=== PATIENT | male | born 1960 | race Caucasian/White ===

== ENCOUNTER 2017-11-09 06:13 | Emergency (ER) | payer MEDICARE, OTHER, MEDICAID ==
[~2017-11-09] VITALS: Ht 188 cm; Wt 78.0 kg
[~2017-11-09 06:13] MED LIST: ALBU8.5H4 PO; ATOR40TA PO; FLUT16SP11 NAS; HYDR-565 PO; IBUP-1984 PO; LANTUS SQ; METF500T PO; NORCO10T PO
[2017-11-09 06:17] VITALS: BP 121/71
[2017-11-09] MEDS ORDERED: ACET-3068 PO (06:57)
== END 2017-11-09 07:06 | disposition home or self-care (01) ==
LOC: ER 06:13
DX: K08.89 Other specified disorders of teeth and supporting structures (principal); R51 Headache; E78.00 Pure hypercholesterolemia, unspecified; E11.9 Type 2 diabetes mellitus without complications; G89.29 Other chronic pain; F17.200 Nicotine dependence, unspecified, uncomplicated; Z98.890 Other specified postprocedural states; Z79.899 Other long term (current) drug therapy; Z79.4 Long term (current) use of insulin; Z79.1 Long term (current) use of non-steroidal anti-inflammatories (NSAID)
CPT/HCPCS: 99282; 99283

== ENCOUNTER 2018-08-14 04:21 | Inpatient (IN) | payer MEDICARE, MEDICAID ==
[~2018-08-14] VITALS: Ht 185.4 cm; Wt 80.9 kg
[~2018-08-14 04:21] MED LIST changes: +HYDR-4353 PO; -HYDR-565 PO
[2018-08-14] MEDS ORDERED: normal saline 1000ML IV soln IV ONE (04:30)
[2018-08-14] MEDS ORDERED: insulin regular, human 10 units/0.1 ml syringe SQ ONE (04:30)
[2018-08-14] MEDS ORDERED: insulin regular, human 10 units/0.1 ml syringe IV ONE (04:30)
[2018-08-14] MEDS ORDERED: ondansetron/PF 4mg/2ml inj IV ONE ×2 (04:55→08:10)
[2018-08-14 05:42] LABS: BASOPHILS # (AUTO) 0.1 X10'3 (0-0.2); BASOPHILS % (AUTO) 0.4 % (0-1); EOSINOPHILS % (AUTO) 0.1 % (0-6); HEMOGLOBIN 15.3 g/dl (14.0-17.9); LYMPHOCYTES # (AUTO) 1.2 X10'3 (1.1-4.8); LYMPHOCYTES % (AUTO) 7.7 % (21-51); MEAN CORPUSCULAR HEMOGLOBIN 30.4 PG (27.0-31.0); MEAN CORPUSCULAR HGB CONC 31.9 g/dL (33.0-36.5); MEAN CORPUSCULAR VOLUME 95.3 FL (78-98); MEAN PLATELET VOLUME 9.7 FL (7.4-10.4); MONOCYTES # (AUTO) 0.2 X10'3 (0-0.9); NEUTROPHILS # (AUTO) 14.6 X10'3 (1.8-7.7); NEUTROPHILS % (AUTO) 90.8 % (42-75); PLATELET COUNT 357 X10'3 (140-440); RED BLOOD COUNT 5.03 X10'6 (4.70-6.10); RED CELL DISTRIBUTION WIDTH 13.4 % (11.5-14.5); WHITE BLOOD COUNT 16.1 X10'3 (4.5-11.0)
[2018-08-14 05:55] LABS: PARTIAL THROMBOPLASTIN TIME 25 SECONDS (22-32)
[2018-08-14 06:03] LABS: ALANINE AMINOTRANSFERASE 45 U/L (12-78); ALBUMIN 3.7 G/DL (3.4-5.0); ALBUMIN/GLOBULIN RATIO 1.1 (1.1-1.5); ALKALINE PHOSPHATASE 183 IU/L (46-116); ANION GAP 41 (8-16); ASPARTATE AMINO TRANSFERASE 31 U/L (10-37); BILIRUBIN,TOTAL 0.5 MG/DL (0.1-1.0); BLOOD UREA NITROGEN 41 MG/DL (7-18); BUN/CREATININE RATIO 18.5 (5.4-32.0); CALCIUM 9.8 MG/DL (8.5-10.1); CHLORIDE 81 MMOL/L (99-107); CREATININE 2.22 MG/DL (0.60-1.10); POTASSIUM 4.8 MMOL/L (3.5-5.1); SODIUM 131 MMOL/L (135-145); TOTAL PROTEIN 7.1 G/DL (6.4-8.2); TROPONIN I < 0.04 NG/ML (0.0-0.05); eGFR 30 ML/MIN
[2018-08-14 06:17] LABS: GLUCOSE 823 MG/DL (70-104); TOTAL CARBON DIOXIDE 9.2 MMOL/L (24-32)
[2018-08-14] MEDS ORDERED: potassium Cl 40MEQ/NS 500ml 500 ML IV PRN ×6 (06:30→08:05)
[2018-08-14] MEDS ORDERED: normal saline 1000ML IV soln IVB ONE (06:30)
[2018-08-14] MEDS ORDERED: sodium phosphate inj. 15 MMOL in dextrose 5%-water 150 ML IV PRN ×2 (06:30→08:05)
[2018-08-14] MEDS ORDERED: potassium Cl 20 mEq SR tablet PO PRN ×6 (06:30→08:05)
[2018-08-14] MEDS ORDERED: sodium phosphate inj. 30 MMOL in dextrose 5%-water 250 ML IV PRN ×2 (06:30→08:05)
--- NOTE | 2018-08-14 06:52 | NUR ---
RT AT BEDSIDE DRAWING ABG PER ORDERS NOW
[2018-08-14] MEDS: insulin regular, DKA only 100 UNIT in normal saline 100ml IV soln 99 ML IV SCH ×4 (07:13→09:04)
[2018-08-14 07:20] LABS: ALBUMIN 3.4 G/DL (3.4-5.0); ANION GAP 37 (8-16); BLOOD UREA NITROGEN 39 MG/DL (7-18); BUN/CREATININE RATIO 19.4 (5.4-32.0); CALCIUM 8.8 MG/DL (8.5-10.1); CHLORIDE 88 MMOL/L (99-107); CREATININE 2.01 MG/DL (0.60-1.10); PHOSPHORUS 7.4 MG/DL (2.3-4.5); POTASSIUM 4.1 MMOL/L (3.5-5.1); SODIUM 134 MMOL/L (135-145); eGFR 34 ML/MIN
[2018-08-14 07:29] LABS: TOTAL CARBON DIOXIDE 9.2 MMOL/L (24-32)
[2018-08-14 07:31] LABS: ABG BASE EXCESS -16.7 mmol/L (-2.0-3.0); ABG HCO3 8.3 mmol/L (22.0-26.0); ABG OXYGEN SATURATION 97.2 % (95-98); ABG PCO2 (T) 19.8 mmHg (35.0-48.0); ABG PH (T) 7.242 (7.350-7.450); ABG PO2 (T) 106.4 mmHg (83-108); ALLEN'S TEST Positive; FCOHb 0.2 % (0.5-1.5); FMetHb 0.2 % (0.3-1.12); FO2Hb 96.8 % (94-100); TOTAL HEMOGLOBIN 14.4 G/dl (14.0-18.0)
[2018-08-14 07:34] LABS: GLUCOSE 634 MG/DL (70-104)
[2018-08-14 07:40] LABS: CLARITY,URINE CLEAR (Clear); COLOR,URINE YELLOW (Yellow); GLUCOSE, URINE >=1000 mg/dl (Neg); KETONES,URINE >=80 mg/dl (Neg); LEUKOCYTE ESTERASE ,URINE NEGATIVE (Neg); NITRITES, URINE NEGATIVE (Neg); OCCULT BLOOD,URINE TRACE-LYSED (Neg); PH,URINE 5.5 (4.8-8.0); PROTEIN,URINE NEGATIVE (Neg); UROBILINOGEN,URINE 0.2 E.U/dL (0.2-1.0)
[2018-08-14 07:41] LABS: UA COLLECTION TYPE CLN CATCH MIDSTREAM
--- NOTE | 2018-08-14 07:46 | NUR ---
CALLED HATTIE ON [facility] [phone] LEFT MESSAGE REQUESTING A LIST OF PT MEDICATIONS BE FAXED TO HOSPITAL TO UPDATE PT MED REC
[2018-08-14 07:48] LABS: BACTERIA,URINE NONE SEEN /HPF (Neg); MUCUS STRANDS NONE SEEN /LPF (Neg); RBC,URINE NONE SEEN /HPF (0-2); SQUAMOUS EPITHELIAL CELL,UR NONE SEEN /LPF (FEW); WBC,URINE NONE SEEN /HPF (0-4)
[2018-08-14] MEDS ORDERED: magnesium 2GM in 50ml NS 50 ML IV PRN (07:55)
[2018-08-14] MEDS ORDERED: magnesium Cl slow-release 64mg tablet PO PRN (07:55)
[2018-08-14] MEDS ORDERED: ondansetron/PF 4mg/2ml inj IV PRN (07:55)
[2018-08-14] MEDS ORDERED: magnesium 4gm in 100ml NS 100 ML IV PRN (07:55)
[2018-08-14] MEDS: K and/or MAG REPLACEMENT MC SCH (08:00)
[2018-08-14] MEDS ORDERED: K and/or MAG REPLACEMENT MC SCH (08:00)
[2018-08-14] MEDS ORDERED: sodium bicarbonate (8.4%) inj. 100 MEQ in dextrose 5% water 500ml 500 ML IV PRN (08:02)
[2018-08-14] MEDS ORDERED: sodium bicarbonate (8.4%) inj. 50 MEQ in dextrose 5% water 500ml 250 ML IV PRN (08:02)
[2018-08-14] MEDS: normal saline 1000ml 1,000 ML IV SCH ×6 (08:02→20:02)
[2018-08-14] MEDS ORDERED: insulin regular, DKA only 100 UNIT in normal saline 100ml IV soln 99 ML IV SCH ×2 (08:02)
[2018-08-14] MEDS ORDERED: Neutra Phos packet PO PRN (08:05)
[2018-08-14] MEDS ORDERED: insulin regular, human vial - multi-dose IV PRN (08:05)
--- NOTE | 2018-08-14 08:22 | NUR ---
Patient received total of 4 L bolus. MD cancelled next 2 L and requested to start NS @ 250.
[2018-08-14 09:20] LABS: ALBUMIN 3.1 G/DL (3.4-5.0); ANION GAP 27 (8-16); BLOOD UREA NITROGEN 39 MG/DL (7-18); BUN/CREATININE RATIO 20.9 (5.4-32.0); CALCIUM 7.5 MG/DL (8.5-10.1); CHLORIDE 97 MMOL/L (99-107); CREATININE 1.87 MG/DL (0.60-1.10); POTASSIUM 4.5 MMOL/L (3.5-5.1); SODIUM 137 MMOL/L (135-145); eGFR 37 ML/MIN
[2018-08-14 09:22] LABS: TOTAL CARBON DIOXIDE 13.5 MMOL/L (24-32)
[2018-08-14 09:25] LABS: GLUCOSE 504 MG/DL (70-104)
[2018-08-14] MEDS ORDERED: IBUP-1985 PO (09:43)
[2018-08-14] MEDS ORDERED: INSU100C4 SQ (09:43)
[2018-08-14] MEDS ORDERED: LISI10TA4 PO (09:45)
[2018-08-14] MEDS ORDERED: SITA100T15 PO (09:45)
[2018-08-14] MEDS ORDERED: ATOR40TA PO (09:45)
[2018-08-14] MEDS ORDERED: ibuprofen 200mg tablet PO PRN (10:00)
[2018-08-14 10:37] VITALS: BP 122/57
--- NOTE | 2018-08-14 10:41 | NUR ---
PAGER ID: [phone] MESSAGE: [phone] [id number] Jeffrey Naranjo can he get anything for pain. Patient has 8/10 back pain. RONDA Molina Ext [phone]
[2018-08-14 12:08] LABS: ALBUMIN 3.6 G/DL (3.4-5.0); ANION GAP 21 (8-16); BLOOD UREA NITROGEN 34 MG/DL (7-18); BUN/CREATININE RATIO 22.1 (5.4-32.0); CALCIUM 8.8 MG/DL (8.5-10.1); CHLORIDE 99 MMOL/L (99-107); CREATININE 1.54 MG/DL (0.60-1.10); GLUCOSE 357 MG/DL (70-104); PHOSPHORUS 3.1 MG/DL (2.3-4.5); POTASSIUM 4.1 MMOL/L (3.5-5.1); SODIUM 140 MMOL/L (135-145); TOTAL CARBON DIOXIDE 20.2 MMOL/L (24-32); eGFR 46 ML/MIN
--- NOTE | 2018-08-14 12:29 | NUR ---
DM Consult: Pt admit w/ DKA hx T2DM insulin dependent and T1DM in EMR? Per MD note pt has gone the past month w/o DM meds. GLU 800's on admit. Last A1C 2013; SAGRARIO d/w RN for new A1C this admit. Pt will need DM ed once more clinically stable prior to d/c. Currently NPO on insulin drip w/ electroytes PRN per DKA protocol. Will continue to monitor. Rec: 1. advance to carb controlled diet per 2. monitor for ONS needs once PO 3. DM ed once clinically stable prior to d/c 4. wt per rx Addendum: 08/14/18 at [address] Amended: Links added.
[2018-08-14 12:37] LABS: TOTAL CELLS COUNTED 100
[2018-08-14 12:38] LABS: PLATELET ESTIMATE NORMAL
[2018-08-14] MEDS: dextrose 5%-1/2 normal saline 1,000 ML IV SCH ×2 (13:09→13:10)
[2018-08-14] MEDS: potassium CL 20mEq in D5-1/2NS 1,000 ML IV PRN ×2 (13:39→20:58)
[2018-08-14] MEDS ORDERED: non-formulary drug (Ibuprofen 1 TAB) PO PRN (14:20)
[2018-08-14 15:00] VITALS: BP 137/77
[2018-08-14] MEDS: lisinopril 10 MG tablet PO SCH (15:23)
[2018-08-14 17:13] LABS: ALBUMIN 2.8 G/DL (3.4-5.0); ANION GAP 13 (8-16); BLOOD UREA NITROGEN 31 MG/DL (7-18); BUN/CREATININE RATIO 23.3 (5.4-32.0); CALCIUM 7.7 MG/DL (8.5-10.1); CHLORIDE 103 MMOL/L (99-107); CREATININE 1.33 MG/DL (0.60-1.10); GLUCOSE 269 MG/DL (70-104); PHOSPHORUS 2.5 MG/DL (2.3-4.5); POTASSIUM 4.1 MMOL/L (3.5-5.1); SODIUM 138 MMOL/L (135-145); TOTAL CARBON DIOXIDE 22.1 MMOL/L (24-32); eGFR 55 ML/MIN
--- NOTE | 2018-08-14 17:26 | NUR ---
PAGER ID: [phone] MESSAGE: [id number] Jeffrey Naranjo his anion gap is now 13 and CO2 is 22.1. RONDA Molina Ext [id number]
--- NOTE | 2018-08-14 17:54 | NUR ---
PAGER ID: [phone] MESSAGE: [id number] Jeffrey Naranjo Can we try giving him food. CO2 and Anion gap has met parameters. RONDA Molina Ext [phone] Addendum: 08/14/18 at 1802 by Jesse Chu RN Start on clear liquids per Mendez BAUER.
--- NOTE | 2018-08-14 18:21 | NUR ---
Problems reprioritized. Patient report given, questions answered & plan of care reviewed with RONDA Perez.
[2018-08-14 19:00] VITALS: BP 92/55
[2018-08-14] MEDS: atorvastatin 20mg tablet PO SCH (20:07)
[2018-08-14] MEDS: heparin, porcine 5000 units/ml vial SQ SCH (20:08)
[2018-08-14] MEDS ORDERED: glucagon, human recombinant 1mg kit SUBCUT PRN (20:20)
[2018-08-14] MEDS ORDERED: MESSAGE TO PHARMACY PO ONE (20:20)
[2018-08-14] MEDS ORDERED: dextrose ORAL solution 15 GM/59 ML bottle PO PRN ×2 (20:20)
[2018-08-14] MEDS ORDERED: dextrose 50%-water 50ml dispensing syringe IV PRN ×2 (20:20)
[2018-08-14] MEDS: insulin Lispro (HumaLOG) vial - multi-dose SQ SCH (20:53)
--- NOTE | 2018-08-14 21:14 | NUR ---
PAGER ID: [phone] MESSAGE: [id number] Jeffrey Naranjo Pt smokes a pack of cigarettes a day and is requesting nicotine patch. Thanks. Trice BOND 1304
[2018-08-14] MEDS: insulin glargine (Lantus) pen - multi-dose SQ SCH (22:14)
[2018-08-14] MEDS: nicotine 21mg patch - 24 hr TD SCH (22:19)
--- NOTE | 2018-08-14 22:30 | NUR ---
Insulin gtt turned off, CO2 22.1, Anion gap 13, BS 219. Patient had a clear liquid tray for dinner and tolerated well, no nausea. Patient put on hyper/hypoglycemic protocol and will be treated per protocol. Will continue to monitor
[2018-08-14 23:00] VITALS: BP 86/58
[2018-08-15] VITALS (7 sets, daily range): BP systolic 76–120; BP diastolic 42–61
[2018-08-15] MEDS: normal saline 1000ml 1,000 ML IV SCH ×9 (00:02→21:02)
--- NOTE | 2018-08-15 00:05 | NUR ---
Patient BP 76/46, HR 127, & getting more lethargic. Dr. Amanda santillan and was notified of Lactic Acid of 6.5/3.9 drawn today and WBC of 16.1. Current blood sugar 271. 3 boluses of NS was administered and Levofloxacin was ordered along with orders for repeat L.A., blood cultures and AM labs. Will continue to monitor.
[2018-08-15] MEDS ORDERED: normal saline 1000ml 1,000 ML IV PRN (00:35)
--- NOTE | 2018-08-15 01:30 | NUR ---
Unable to obtain blood for labs. 3 nurses tried, [employer] from ER attempted as well with no success. Patient responding to fluid boluses but not sustaining BP, 84/48. Dr. Patel and Evelin BOND from ICU at bedside. Levofloxacin and NS @ 200ml/hrs started. Will continue to monitor. Addendum: 08/15/18 at 0442 by Trice Brennan RN BP sustaining at low 90's systolic
[2018-08-15] MEDS: levoFLOXACIN-Levaquin 750MG/D5 150 ML IV SCH (02:23)
[2018-08-15 05:25] LABS: BASOPHILS % (AUTO) 0.2 % (0-1); EOSINOPHILS % (AUTO) 0 % (0-6); HEMATOCRIT 40.8 % (42.0-52.0); HEMOGLOBIN 13.7 g/dl (14.0-17.9); LYMPHOCYTES # (AUTO) 0.9 X10'3 (1.1-4.8); MEAN CORPUSCULAR HEMOGLOBIN 30.6 PG (27.0-31.0); MEAN CORPUSCULAR HGB CONC 33.6 g/dL (33.0-36.5); MEAN CORPUSCULAR VOLUME 91.1 FL (78-98); MEAN PLATELET VOLUME 9.5 FL (7.4-10.4); MONOCYTES # (AUTO) 1.4 X10'3 (0-0.9); MONOCYTES % (AUTO) 7.7 % (2-12); NEUTROPHILS # (AUTO) 15.7 X10'3 (1.8-7.7); NEUTROPHILS % (AUTO) 87.1 % (42-75); PLATELET COUNT 202 X10'3 (140-440); RED BLOOD COUNT 4.48 X10'6 (4.70-6.10); RED CELL DISTRIBUTION WIDTH 12.8 % (11.5-14.5); WHITE BLOOD COUNT 18.1 X10'3 (4.5-11.0)
[2018-08-15 05:30] LABS: ALBUMIN 2.4 G/DL (3.4-5.0); ANION GAP 12 (8-16); BLOOD UREA NITROGEN 25 MG/DL (7-18); BUN/CREATININE RATIO 23.4 (5.4-32.0); CALCIUM 7.2 MG/DL (8.5-10.1); CHLORIDE 101 MMOL/L (99-107); CREATININE 1.07 MG/DL (0.60-1.10); GLUCOSE 282 MG/DL (70-104); MAGNESIUM 1.6 MG/DL (1.5-2.4); PHOSPHORUS 2.1 MG/DL (2.3-4.5); POTASSIUM 4.3 MMOL/L (3.5-5.1); SODIUM 134 MMOL/L (135-145); TOTAL CARBON DIOXIDE 20.8 MMOL/L (24-32); eGFR 70 ML/MIN
--- NOTE | 2018-08-15 06:00 | NUR ---
Problems reprioritized. Patient report given, questions answered & plan of care reviewed with Liliana BOND.
[2018-08-15 06:04] LABS: TOTAL CELLS COUNTED 100
[2018-08-15 06:05] LABS: PLATELET ESTIMATE NORMAL
--- NOTE | 2018-08-15 06:42 | NUR ---
Patient in room U 3028. I have received report from RONDA Perez and had the opportunity to ask questions and assume patient care. Addendum: 08/15/18 at 0643 by Jesse Chu RN Received report from RONDA Carnes
[2018-08-15] MEDS: K and/or MAG REPLACEMENT MC SCH (07:07)
[2018-08-15] MEDS: heparin, porcine 5000 units/ml vial SQ SCH ×2 (07:27→20:49)
[2018-08-15] MEDS: nicotine 21mg patch - 24 hr TD SCH (07:29)
[2018-08-15] MEDS: lisinopril 10 MG tablet PO SCH (07:29)
[2018-08-15] MEDS ORDERED: K and/or MAG REPLACEMENT MC SCH (08:00)
[2018-08-15] MEDS: insulin Lispro (HumaLOG) vial - multi-dose SQ SCH ×4 (08:16→22:34)
[2018-08-15] MEDS: dextrose 5%-1/2 normal saline 1,000 ML IV SCH ×2 (08:57)
--- NOTE | 2018-08-15 16:37 | NUR ---
Written DM education given with verbal review and referral to outpatient DM education class. Addendum: 08/15/18 at [address] Amended: Links added.
--- NOTE | 2018-08-15 18:20 | NUR ---
Patient in room PCU 3028. I have received report from Jesse BOND and had the opportunity to ask questions and assume patient care.
--- NOTE | 2018-08-15 18:27 | NUR ---
Problems reprioritized. Patient report given, questions answered & plan of care reviewed with RONDA Sharp.
[2018-08-15] MEDS: atorvastatin 20mg tablet PO SCH (20:48)
[2018-08-15] MEDS: insulin glargine (Lantus) pen - multi-dose SQ SCH (22:34)
[2018-08-16] MEDS: levoFLOXACIN-Levaquin 750MG/D5 150 ML IV SCH (02:20)
[2018-08-16 03:00] VITALS: BP 139/69
--- NOTE | 2018-08-16 06:06 | NUR ---
Problems reprioritized. Patient report given, questions answered & plan of care reviewed with Sania BOND.
[2018-08-16 07:16] LABS: ALBUMIN 1.7 G/DL (3.4-5.0); ANION GAP 11 (8-16); BLOOD UREA NITROGEN 11 MG/DL (7-18); BUN/CREATININE RATIO 15.7 (5.4-32.0); CALCIUM 7.2 MG/DL (8.5-10.1); CHLORIDE 107 MMOL/L (99-107); GLUCOSE 202 MG/DL (70-104); MAGNESIUM 1.8 MG/DL (1.5-2.4); SODIUM 137 MMOL/L (135-145); eGFR > 90 ML/MIN
[2018-08-16 07:17] LABS: BASOPHILS % (AUTO) 0.3 % (0-1); EOSINOPHILS # (AUTO) 0.1 X10'3 (0-0.9); EOSINOPHILS % (AUTO) 0.5 % (0-6); HEMATOCRIT 32.3 % (42.0-52.0); HEMOGLOBIN 11.1 g/dl (14.0-17.9); LYMPHOCYTES # (AUTO) 1.2 X10'3 (1.1-4.8); LYMPHOCYTES % (AUTO) 10.1 % (21-51); MEAN CORPUSCULAR HEMOGLOBIN 31.3 PG (27.0-31.0); MEAN CORPUSCULAR HGB CONC 34.3 g/dL (33.0-36.5); MEAN CORPUSCULAR VOLUME 91.1 FL (78-98); MEAN PLATELET VOLUME 9.2 FL (7.4-10.4); NEUTROPHILS # (AUTO) 9.8 X10'3 (1.8-7.7); NEUTROPHILS % (AUTO) 81.1 % (42-75); PLATELET COUNT 167 X10'3 (140-440); RED BLOOD COUNT 3.54 X10'6 (4.70-6.10); WHITE BLOOD COUNT 12.1 X10'3 (4.5-11.0)
[2018-08-16 07:20] LABS: POTASSIUM 3.6 MMOL/L (3.5-5.1)
[2018-08-16] MEDS: K and/or MAG REPLACEMENT MC SCH (08:00)
[2018-08-16] MEDS: heparin, porcine 5000 units/ml vial SQ SCH ×2 (08:32→21:02)
[2018-08-16] MEDS: nicotine 21mg patch - 24 hr TD SCH (08:36)
[2018-08-16] MEDS: Neutra Phos packet PO PRN ×2 (08:41→21:04)
[2018-08-16 11:11] VITALS: BP 93/58
--- NOTE | 2018-08-16 12:46 | NUR ---
Malnutrition consult: Pt currently on a CHO controlled diet with documented average 75% PO intake likely meeting nutrient needs. Pt seen at bedside endorses a good appetite and requests double protein and diet Jell-o TID, d/w dietary. Current wt is stable with documented weights at past visits. Pt with no visible fat/muscle wasting. Pt currently does not meet criteria for malnutrition. DKA resolved per MD notes. Pt denies any further questions about DM management. Pt states he is going to see a new MD for DM management following d/c. Pt reports some difficulty swallowing food at this time d/t previous N/V and is agreeable to soft to chew foods, d/w dietary. Pt denies any food allergies. LBM 5/2. Will continue to follow. Written DM education given with verbal review and referral to outpatient DM education class. Rec: 1. Continue carb controlled diet 2. Double protein TID; diet Jell-o TID 3. Soft to chew foods 4. wt per rx Addendum: 08/16/18 at [address] Amended: Links added.
[2018-08-16] MEDS: normal saline 1000ml 1,000 ML IV SCH ×2 (13:00→21:15)
[2018-08-16] MEDS: insulin Lispro (HumaLOG) vial - multi-dose SQ SCH ×2 (13:30→19:05)
[2018-08-16 15:15] VITALS: BP 109/66
[2018-08-16 18:00] VITALS: BP 127/74
--- NOTE | 2018-08-16 18:02 | NUR ---
Patient in room PCU 3028. I have received report from Sania BOND and had the opportunity to ask questions and assume patient care.
[2018-08-16] MEDS: atorvastatin 20mg tablet PO SCH (21:03)
[2018-08-16] MEDS: lactobacillus rhamnosus 10,000 MMU CELLS/CAPSULE PO SCH (21:03)
[2018-08-16] MEDS: insulin glargine (Lantus) pen - multi-dose SQ SCH (21:13)
[2018-08-16 23:00] VITALS: BP 111/61
[2018-08-17] MEDS: levoFLOXACIN-Levaquin 750MG/D5 150 ML IV SCH (01:15)
[2018-08-17 06:28] LABS: ALBUMIN 1.9 G/DL (3.4-5.0); ANION GAP 8 (8-16); BASOPHILS % (AUTO) 0.5 % (0-1); BLOOD UREA NITROGEN 10 MG/DL (7-18); BUN/CREATININE RATIO 15.9 (5.4-32.0); CALCIUM 7.3 MG/DL (8.5-10.1); CHLORIDE 106 MMOL/L (99-107); CREATININE 0.63 MG/DL (0.60-1.10); EOSINOPHILS # (AUTO) 0.1 X10'3 (0-0.9); EOSINOPHILS % (AUTO) 1.6 % (0-6); GLUCOSE 183 MG/DL (70-104); HEMATOCRIT 35.6 % (42.0-52.0); LYMPHOCYTES # (AUTO) 1.6 X10'3 (1.1-4.8); LYMPHOCYTES % (AUTO) 18.6 % (21-51); MAGNESIUM 1.6 MG/DL (1.5-2.4); MEAN CORPUSCULAR HEMOGLOBIN 30.5 PG (27.0-31.0); MEAN CORPUSCULAR HGB CONC 33.7 g/dL (33.0-36.5); MEAN CORPUSCULAR VOLUME 90.6 FL (78-98); MEAN PLATELET VOLUME 9.3 FL (7.4-10.4); MONOCYTES # (AUTO) 0.6 X10'3 (0-0.9); MONOCYTES % (AUTO) 7.4 % (2-12); NEUTROPHILS # (AUTO) 6.1 X10'3 (1.8-7.7); NEUTROPHILS % (AUTO) 71.9 % (42-75); PLATELET COUNT 182 X10'3 (140-440); POTASSIUM 3.1 MMOL/L (3.5-5.1); RED BLOOD COUNT 3.93 X10'6 (4.70-6.10); RED CELL DISTRIBUTION WIDTH 12.7 % (11.5-14.5); SODIUM 137 MMOL/L (135-145); TOTAL CARBON DIOXIDE 23.2 MMOL/L (24-32); WHITE BLOOD COUNT 8.4 X10'3 (4.5-11.0); eGFR > 90 ML/MIN
[2018-08-17 06:30] VITALS: BP 109/62
--- NOTE | 2018-08-17 06:46 | NUR ---
Problems reprioritized. Patient report given, questions answered & plan of care reviewed with Trena BOND.
--- NOTE | 2018-08-17 06:48 | NUR ---
Patient in room PCU 3028A. I have received report from Lila BOND and had the opportunity to ask questions and assume patient care.
--- NOTE | 2018-08-17 07:35 | NUR ---
Paged Dr Simms regarding patient labs PAGER ID: [phone] MESSAGE: Trena [phone] Vikas Do [id number]. Pt potassium and Mg replacement protocol fell off and patient has K of 3.1. May I reinstate protocol? And would you like redraw of Phos lab? Patient had replacement done for Phos of 2.1 on 08/15. Thank you
[2018-08-17] MEDS: lactobacillus rhamnosus 10,000 MMU CELLS/CAPSULE PO SCH (07:39)
[2018-08-17] MEDS: heparin, porcine 5000 units/ml vial SQ SCH (07:40)
[2018-08-17] MEDS: nicotine 21mg patch - 24 hr TD SCH (07:40)
[2018-08-17] MEDS ORDERED: magnesium 2GM in 50ml NS 50 ML IV PRN (07:45)
[2018-08-17] MEDS ORDERED: potassium Cl 20 mEq SR tablet PO PRN ×2 (07:45)
[2018-08-17] MEDS ORDERED: potassium Cl 40MEQ/NS 500ml 500 ML IV PRN ×2 (07:45)
[2018-08-17] MEDS ORDERED: magnesium Cl slow-release 64mg tablet PO PRN (07:45)
[2018-08-17] MEDS ORDERED: magnesium 4gm in 100ml NS 100 ML IV PRN (07:45)
[2018-08-17] MEDS: K and/or MAG REPLACEMENT MC SCH (08:00)
[2018-08-17] MEDS ORDERED: K and/or MAG REPLACEMENT MC SCH (08:00)
[2018-08-17 09:02] LABS: PHOSPHORUS 1.3 MG/DL (2.3-4.5)
[2018-08-17] MEDS: insulin Lispro (HumaLOG) vial - multi-dose SQ SCH (09:09)
--- NOTE | 2018-08-17 09:41 | NUR ---
Paged Dr Simms regarding Phos replacement PAGER ID: [phone] MESSAGE: Trena [phone]. RE Vikas Naranjo [id number]. Phos level came back as 1.3. No replacement protocol ordered for Phos below 1.5. Would you like a replacement order? Thank you
[2018-08-17] MEDS: Neutra Phos packet PO PRN (10:08)
--- NOTE | 2018-08-17 11:45 | NUR ---
After walking around unit with patient, per MD patient is stable for discharge. Discharge packet finalized and given to patient, all questions answered. Called [facility] pharmacy to continue insulin orders, but pharmacy stated that patient has no more refills and must go through PCP for renewal. Educated patient regarding followup instructions. IV's d/c'd from right shoulder and right AC, both catheters intact. Tele monitor d/c'd. Patient escorted from unit via wheelchair, accompanied by son. All belongings sent with patient. Son took patient home via private vehicle.
== END 2018-08-17 11:45 | disposition home or self-care (01) | DRG 871 ==
LOC: ER 04:22 → ED HOLD 10:18 → PCU 3S 10:33
PROVIDERS: ADMIT Internal Medicine; ATTEND Internal Medicine
DX: A41.9 Sepsis, unspecified organism (principal); E11.10 Type 2 diabetes mellitus with ketoacidosis without coma; E78.00 Pure hypercholesterolemia, unspecified; E78.5 Hyperlipidemia, unspecified; I10 Essential (primary) hypertension; M54.5 Low back pain; G89.29 Other chronic pain; I34.0 Nonrheumatic mitral (valve) insufficiency; Z79.4 Long term (current) use of insulin; Z87.891 Personal history of nicotine dependence; Z91.14 Patient's other noncompliance with medication regimen
CPT/HCPCS: 36415; 36600; 71045; 80048; 80053; 81001; 82009; 82803; 82948; 83036; 83605; 83735; 84100; 84145; 84484; 85018; 85025; 85610; 85730; 87040; 87070; 93005; 93306; 96365; 96366; 96372; 96375; 96376; 99285; G0378; J1644; J1815; J1956; J2405; J7030

== ENCOUNTER 2019-02-10 21:20 | Emergency (ER) | payer MEDICARE, MEDICAID ==
[~2019-02-10] VITALS: Ht 185.4 cm; Wt 81.4 kg
[~2019-02-10 21:20] MED LIST changes: -ALBU8.5H4 PO; -FLUT16SP11 NAS; -HYDR-4353 PO; -IBUP-1984 PO; +IBUP-1985 PO; +INSU100C4 SQ; +LISI10TA4 PO; -METF500T PO; -NORCO10T PO; +SITA100T15 PO
[2019-02-10] MEDS ORDERED: LORazepam 1 MG tablet PO ONE (21:25)
[2019-02-10 21:56] LABS: BASOPHILS # (AUTO) 0.1 X10'3 (0-0.2); BASOPHILS % (AUTO) 1.2 % (0-1); EOSINOPHILS # (AUTO) 0.5 X10'3 (0-0.9); EOSINOPHILS % (AUTO) 5.4 % (0-6); HEMATOCRIT 41.1 % (42.0-52.0); LYMPHOCYTES # (AUTO) 2.2 X10'3 (1.1-4.8); LYMPHOCYTES % (AUTO) 25.6 % (21-51); MEAN CORPUSCULAR HEMOGLOBIN 31.5 PG (27.0-31.0); MEAN CORPUSCULAR HGB CONC 34.2 g/dL (33.0-36.5); MEAN CORPUSCULAR VOLUME 91.9 FL (78-98); MEAN PLATELET VOLUME 8.9 FL (7.4-10.4); MONOCYTES # (AUTO) 0.6 X10'3 (0-0.9); MONOCYTES % (AUTO) 7.5 % (2-12); NEUTROPHILS # (AUTO) 5.2 X10'3 (1.8-7.7); NEUTROPHILS % (AUTO) 60.3 % (42-75); PLATELET COUNT 199 X10'3 (140-440); RED BLOOD COUNT 4.47 X10'6 (4.70-6.10); RED CELL DISTRIBUTION WIDTH 13.4 % (11.5-14.5); WHITE BLOOD COUNT 8.6 X10'3 (4.5-11.0)
[2019-02-10 22:08] LABS: ALANINE AMINOTRANSFERASE 28 U/L (12-78); ALBUMIN 3.5 G/DL (3.4-5.0); ALBUMIN/GLOBULIN RATIO 1.2 (1.1-1.5); ALKALINE PHOSPHATASE 121 IU/L (46-116); ANION GAP 7 (8-16); ASPARTATE AMINO TRANSFERASE 17 U/L (10-37); BILIRUBIN,TOTAL 0.3 MG/DL (0.1-1.0); BLOOD UREA NITROGEN 19 MG/DL (7-18); BUN/CREATININE RATIO 15.6 (5.4-32.0); CALCIUM 8.6 MG/DL (8.5-10.1); CHLORIDE 103 MMOL/L (99-107); CREATININE 1.22 MG/DL (0.60-1.10); GLUCOSE 273 MG/DL (70-104); POTASSIUM 4.2 MMOL/L (3.5-5.1); SODIUM 137 MMOL/L (135-145); TOTAL CARBON DIOXIDE 27.4 MMOL/L (24-32); TOTAL PROTEIN 6.4 G/DL (6.4-8.2); eGFR 60 ML/MIN
[2019-02-10] MEDS ORDERED: LORA-269 PO (22:15)
[2019-02-10 22:23] VITALS: BP 120/59
== END 2019-02-10 22:53 | disposition home or self-care (01) ==
LOC: ER 21:20
DX: F41.9 Anxiety disorder, unspecified (principal); R00.0 Tachycardia, unspecified; E78.00 Pure hypercholesterolemia, unspecified; E11.9 Type 2 diabetes mellitus without complications; G89.29 Other chronic pain; Z98.890 Other specified postprocedural states; Z79.4 Long term (current) use of insulin; Z79.899 Other long term (current) drug therapy
CPT/HCPCS: 36415; 80053; 85025; 93005; 99284

== ENCOUNTER 2019-02-18 15:35 | Emergency (ER) | payer MEDICARE, MEDICAID ==
[~2019-02-18] VITALS: Ht 185.4 cm; Wt 82.8 kg
[~2019-02-18 15:35] MED LIST changes: +LORA-269 PO
[2019-02-18 15:36] VITALS: BP 132/70
[2019-02-18] MEDS ORDERED: ALBU18HF2 IH (15:58)
[2019-02-18] MEDS ORDERED: AZIT500T PO (15:58)
== END 2019-02-18 16:03 | disposition home or self-care (01) ==
LOC: ER 15:36
DX: J22 Unspecified acute lower respiratory infection (principal); E11.9 Type 2 diabetes mellitus without complications; J44.9 Chronic obstructive pulmonary disease, unspecified; E78.00 Pure hypercholesterolemia, unspecified; G89.29 Other chronic pain; F17.200 Nicotine dependence, unspecified, uncomplicated; Z79.899 Other long term (current) drug therapy; Z79.4 Long term (current) use of insulin; Z98.890 Other specified postprocedural states
CPT/HCPCS: 99283

== ENCOUNTER 2020-01-05 17:23 | Emergency (ER) | payer MEDICARE, MEDICAID ==
[~2020-01-05] VITALS: Ht 185.4 cm; Wt 81.8 kg
[~2020-01-05 17:23] MED LIST changes: +ALBU18HF2 IH
[2020-01-05 17:38] VITALS: BP 111/72
[2020-01-05] MEDS ORDERED: ONDA4TAB6 PO (18:18)
[2020-01-05] MEDS ORDERED: HYDR-4383 PO (18:18)
[2020-01-05] MEDS ORDERED: ondansetron 4mg rapidly disintigrating tab PO ONE (18:20)
[2020-01-05] MEDS ORDERED: HYDROcodone/acetaminophen 5mg/325mg tablet PO ONE (18:20)
== END 2020-01-05 18:50 | disposition home or self-care (01) ==
LOC: ER 17:24
DX: S92.352A Displaced fracture of fifth metatarsal bone, left foot, initial encounter for closed fracture (principal); M79.675 Pain in left toe(s); E78.00 Pure hypercholesterolemia, unspecified; E11.9 Type 2 diabetes mellitus without complications; G89.29 Other chronic pain; Z98.890 Other specified postprocedural states; Z79.4 Long term (current) use of insulin; Z79.899 Other long term (current) drug therapy; X58.XXXA Exposure to other specified factors, initial encounter; Y93.89 Activity, other specified; Y92.89 Other specified places as the place of occurrence of the external cause; Y99.8 Other external cause status
CPT/HCPCS: 73630; 99283

== ENCOUNTER 2020-05-25 19:11 | Emergency (ER) | payer MEDICARE, MEDICAID ==
[~2020-05-25] VITALS: Ht 185.4 cm; Wt 81.8 kg
[~2020-05-25 19:11] MED LIST changes: +HYDR-4383 PO; +ONDA4TAB6 PO
[2020-05-25 19:22] VITALS: BP 139/81
[2020-05-25] MEDS ORDERED: AMOX-422 PO (21:32)
[2020-05-25] MEDS ORDERED: FLUT16SP2 BOTHNARES (21:32)
[2020-05-25] MEDS ORDERED: PRED20TA PO (21:32)
[2020-05-25] MEDS ORDERED: ALBU6.7H9 INH (21:32)
== END 2020-05-25 21:40 | disposition home or self-care (01) ==
LOC: ER 19:12
DX: J32.9 Chronic sinusitis, unspecified (principal); R05 Cough; R06.02 Shortness of breath; J02.9 Acute pharyngitis, unspecified; R09.89 Other specified symptoms and signs involving the circulatory and respiratory systems; R51.9 Headache, unspecified; I48.91 Unspecified atrial fibrillation; E78.00 Pure hypercholesterolemia, unspecified; J44.9 Chronic obstructive pulmonary disease, unspecified; E11.9 Type 2 diabetes mellitus without complications; G89.29 Other chronic pain; F17.200 Nicotine dependence, unspecified, uncomplicated; Z98.890 Other specified postprocedural states; Z79.2 Long term (current) use of antibiotics; Z79.4 Long term (current) use of insulin; Z79.899 Other long term (current) drug therapy
CPT/HCPCS: 99283

== ENCOUNTER 2020-11-12 22:18 | Emergency (ER) | payer MEDICARE, MEDICAID ==
[~2020-11-12] VITALS: Ht 185.4 cm; Wt 88.6 kg
[~2020-11-12 22:18] MED LIST changes: +ALBU6.7H9 INH; +FLUT16SP2 BOTHNARES; +LISI10TA27 PO; -LISI10TA4 PO
[2020-11-12 22:21] VITALS: BP 156/80
== END 2020-11-13 01:28 | disposition home or self-care (01) ==
LOC: ER 22:19
DX: M79.672 Pain in left foot (principal); R22.42 Localized swelling, mass and lump, left lower limb; I48.91 Unspecified atrial fibrillation; E78.00 Pure hypercholesterolemia, unspecified; I10 Essential (primary) hypertension; J44.9 Chronic obstructive pulmonary disease, unspecified; E11.9 Type 2 diabetes mellitus without complications; G89.29 Other chronic pain; F17.200 Nicotine dependence, unspecified, uncomplicated; Z79.4 Long term (current) use of insulin; Z79.899 Other long term (current) drug therapy
CPT/HCPCS: 73630; 93971; 99284

== ENCOUNTER 2021-01-30 11:52 | Emergency (ER) | payer MEDICARE, MEDICAID ==
[~2021-01-30] VITALS: Ht 185.4 cm; Wt 93.2 kg
[2021-01-30 12:31] VITALS: BP 141/89
[2021-01-30] MEDS ORDERED: orphenadrine citrate 60mg/2ml inj. IM ONE (13:50)
[2021-01-30] MEDS ORDERED: ketorolac tromethamine 15mg/ml inj. IM ONE (13:50)
[2021-01-30] MEDS ORDERED: DICL100G30 TOP (13:57)
[2021-01-30] MEDS ORDERED: METH-798 PO (13:57)
== END 2021-01-30 14:18 | disposition home or self-care (01) ==
LOC: ER 11:53
DX: M25.561 Pain in right knee (principal); I48.91 Unspecified atrial fibrillation; E78.00 Pure hypercholesterolemia, unspecified; I10 Essential (primary) hypertension; J44.9 Chronic obstructive pulmonary disease, unspecified; E11.9 Type 2 diabetes mellitus without complications; G89.29 Other chronic pain; Z79.899 Other long term (current) drug therapy
CPT/HCPCS: 73564; 99283

== ENCOUNTER 2021-03-11 08:29 | Emergency (ER) | payer MEDICARE, MEDICAID ==
[~2021-03-11] VITALS: Ht 185.4 cm; Wt 93.2 kg
[~2021-03-11 08:29] MED LIST changes: +DICL100G30 TOP; +METH-798 PO
[2021-03-11 08:32] VITALS: BP 152/84
[2021-03-11] MEDS ORDERED: SULF1TAB49 PO (08:56)
== END 2021-03-11 09:04 | disposition home or self-care (01) ==
LOC: ER 08:29
DX: L02.11 Cutaneous abscess of neck (principal); I48.91 Unspecified atrial fibrillation; I10 Essential (primary) hypertension; G89.29 Other chronic pain; E78.00 Pure hypercholesterolemia, unspecified; J44.9 Chronic obstructive pulmonary disease, unspecified; E11.9 Type 2 diabetes mellitus without complications; Z98.890 Other specified postprocedural states; Z79.4 Long term (current) use of insulin; Z79.899 Other long term (current) drug therapy
CPT/HCPCS: 99284